=== PATIENT | female | born 1955 | race Caucasian/White ===

== ENCOUNTER 2016-06-17 10:51 | Emergency (ER) | payer BC ==
[2016-06-17 11:24] VITALS: BP 131/84
--- NOTE | 2016-06-17 12:36 | UC ---
Abdominal Pain Female HPI - HPI Summary HPI Summary: 1 week ago at about 8pm (leaving work) developed marked nausea without nausea ( but felt close to it) that passed after a few minutes. 7 days later, last night , had similar episode also at 8pm which passed without vomiting but then developed epigastric pain, bloating, and gassiness. Very mild pain still there this morning. Denies sweating or SOB. - History of Current Complaint Hx Obtained From: Patient ?: No Onset/Duration: Sudden Onset, Lasting Minutes Timing: Intermittent Episodes Lasting: Severity Initially: Moderate Severity Currently: Mild Location: Epigastric Radiates: No Character: Cramping, Dull Aggravating Factor(s): Nothing Alleviating Factor(s): Nothing Associated Signs and Symptoms: Positive: Nausea. Negative: Fever, Cough, Blood in Stool, Urinary Symptoms, Vomiting, Diarrhea <Ebony Freire - Last Filed: 06/17/16 12:31> <Edie Reynolds - Last Filed: 06/17/16 13:28> - History of Current Complaint Chief Complaint: UCGI Stated Complaint: NAUSEA Time Seen by Provider: 06/17/16 12:03 Allergies/Adverse Reactions: Allergies Allergy/AdvReac Type Severity Reaction Status Date / Time No Known Allergies Allergy Verified 06/17/16 11:25 Home Medications: Home Medications buPROPion TAB* [Wellbutrin TAB*] 100 mg PO BID 06/17/16 [History Confirmed 06/17] PMH/Surg Hx/FS Hx/Imm Hx Previously Healthy: Yes Cardiovascular History Of: Denies: Cardiac Disorders, Hypertension, Myocardial Infarction Cancer History Of: Denies: Breast Cancer - Surgical History Surgical History: Yes Surgery Procedure, Year, and Place: - Family History Known Family History: Positive: Other - father TIA age 85 Negative: Cardiac Disease, Respiratory Disease - no asthma - Social History Occupation: Employed Full-time Alcohol Use: Occasionally Substance Use Type: None Smoking Status (MU): Never Smoked Tobacco <Ebony Freire - Last Filed: 06/17/16 12:31> Review of Systems Constitutional: Negative Skin: Negative Eyes: Negative ENT: Negative Respiratory: Negative Cardiovascular: Negative Gastrointestinal: Abdominal Pain Genitourinary: Negative Motor: Negative Neurovascular: Negative Musculoskeletal: Negative Neurological: Negative Psychological: Negative All Other Systems Reviewed And Are Negative: Yes <Ebony Freire - Last Filed: 06/17/16 12:31> Physical Exam Triage Information Reviewed: Yes Appearance: Well-Appearing, No Pain Distress, Well-Nourished Vital Signs: Initial Vital Signs Temp 98.5 F 06/17/16 11:16 Pulse 79 06/17/16 11:16 Resp 20 06/17/16 11:16 BP 131/84 06/17/16 11:16 Pulse Ox 98 06/17/16 11:16 Vital Signs Reviewed: Yes Eye Exam: Normal Eyes: Positive: Conjunctiva Clear ENT Exam: Normal ENT: Positive: Normal ENT inspection, Hearing grossly normal, Pharynx normal, TMs normal Dental Exam: Normal Neck exam: Normal Neck: Positive: Supple, Nontender, No Lymphadenopathy Respiratory Exam: Normal Respiratory: Positive: Chest non-tender, Lungs clear, Normal breath sounds, No respiratory distress, No accessory muscle use Cardiovascular Exam: Normal Cardiovascular: Positive: RRR, No Murmur Abdomen Description: Positive: No Organomegaly, Soft. Negative: CVA Tenderness (R), CVA Tenderness (L), Distended, Guarding, Hernia @, Peritoneal Signs Musculoskeletal Exam: Normal Neurological Exam: Normal Neurological: Positive: Alert Psychological Exam: Normal Skin Exam: Normal <Ebony Freire - Last Filed: 06/17/16 12:31> Vital Signs: Initial Vital Signs Temp 98.5 F 06/17/16 11:16 Pulse 79 06/17/16 11:16 Resp 20 06/17/16 11:16 BP 131/84 06/17/16 11:16 Pulse Ox 98 06/17/16 11:16 <Edie Reynolds - Last Filed: 06/17/16 13:28> Abd Pain Female Course/Dx - Differential Dx/Diagnosis Provider Diagnoses: gastroesophageal reflux <Ebony Freire - Last Filed: 06/17/16 12:31> Discharge <Ebony Freire - Last Filed: 06/17/16 12:31> <Edie Reynolds - Last Filed: 06/17/16 13:28> - Discharge Plan Condition: Stable Disposition: HOME Prescriptions: Ranitidine HCl 300 mg PO DAILY PRN #[id number] cap PRN Reason: Pain Patient Education Materials: Gastroesophageal Reflux Disease (ED) Referrals: Jesse Sierra MD [Primary Care Provider] - 2 Weeks Additional Instructions: As we discussed, we have not ruled out more serious problems with your stomach or heart here today, but your symptoms fall into a fairly low-risk category so more testing is not indicated at this time. If you develop severe pain, pain with vomiting or sweating, or marked nausea that does not pass within an hour, please dial 911. You can either take the medicine every day preventatively, or you can only take it on days with symptoms. Please see Dr. Sierra to follow up with these symptoms and your weight loss in 1-2 weeks. Attestation Statement User Type: Provider - I was available for consult. This patient was seen by the [facility]. The patient was not presented to, seen by, or examined by me. <Edie Reynolds - Last Filed: 06/17/16 13:28>
== END 2016-06-17 12:42 | disposition home or self-care (01) ==
LOC: UCEAST 10:51
DX: K21.9 Gastro-esophageal reflux disease without esophagitis (principal)
CPT/HCPCS: 93005; 99212; G0463